=== PATIENT | female | born 1995 | race Two or more races ===

== ENCOUNTER 2018-08-23 18:01 | Emergency (ER) | payer MEDICAID ==
[~2018-08-23] VITALS: Ht 149.9 cm; Wt 85.4 kg
[~2018-08-23 18:01] MED LIST: HYDR-3240 PO; ONDA4TAB7 PO
[2018-08-23 18:10] VITALS: BP 111/77
[2018-08-23] MEDS ORDERED: LEVO75TA5 PO (18:51)
[2018-08-23 19:01] LABS: BASOPHILS # (AUTO) 0.02 x10^3/uL (0-0.1); BASOPHILS % (AUTO) 0 % (0-1); EOSINOPHILS # (AUTO) 0.13 x10^3/uL (0-0.4); EOSINOPHILS % (AUTO) 2 % (1-7); LYMPHOCYTES # (AUTO) 1.79 x10^3/uL (1-3.4); LYMPHOCYTES % (AUTO) 31 % (22-44); MD NO; MEAN CORPUSCULAR HEMOGLOBIN 28.7 pg (27.0-34.8); MEAN CORPUSCULAR HGB CONC 33.3 g/dL (32.4-35.8); MEAN CORPUSCULAR VOLUME 86.1 fL (80-100); MEAN PLATELET VOLUME 8.2 fL (7.4-10.4); MONOCYTES # (AUTO) 0.61 x10^3/uL (0.2-0.8); MONOCYTES % (AUTO) 10 % (2-9); NEUTROPHILS # (AUTO) 3.31 x10^3/uL (1.8-6.8); NEUTROPHILS % (AUTO) 57 % (42-75); PLATELET COUNT 362 x10^3/uL (130-400); RED BLOOD COUNT 5.61 x10^6/uL (3.82-5.3); RED CELL DISTRIBUTION WIDTH 13.3 % (9.6-15.2)
[2018-08-23 19:05] LABS: ALBUMIN 3.7 g/dL (3.4-5.0); ANION GAP 8 mmol/L (5-15); CALCIUM 8.9 mg/dL (8.5-10.1); CHLORIDE 109 mmol/L (98-107)
[2018-08-23 19:13] LABS: ALANINE AMINOTRANSFERASE 35 U/L (12-78); ALKALINE PHOSPHATASE 173 U/L (45-117); BILIRUBIN,TOTAL 0.3 mg/dL (0.2-1.0); CREATININE 0.72 mg/dL (0.55-1.02); TOTAL PROTEIN 7.7 g/dL (6.4-8.2)
[2018-08-23 19:17] LABS: HCG UR SG 1.035 (1.003-1.030)
[2018-08-23 19:19] LABS: CULTURE INDICATED? YES; MICROSCOPIC INDICATED
[2018-08-23] MEDS ORDERED: ONDANSETRON ODT 4 MG PO ONE (19:30)
== END 2018-08-23 19:54 | disposition home or self-care (01) ==
LOC: ED 19:34
DX: A09 Infectious gastroenteritis and colitis, unspecified (principal); R19.7 Diarrhea, unspecified
CPT/HCPCS: 36415; 80053; 81001; 81025; 83690; 85025; 86677; 87086; 99284

== ENCOUNTER 2019-03-17 22:41 | Emergency (ER) | payer MEDICAID ==
[~2019-03-17] VITALS: Ht 149.9 cm; Wt 90.5 kg
[~2019-03-17 22:41] MED LIST changes: +LEVO75TA5 PO
[2019-03-17 22:45] VITALS: BP 126/86
[2019-03-17] MEDS ORDERED: DIPHENHYDRAMINE 25 MG CAPSULE ONE (23:15)
[2019-03-17] MEDS ORDERED: DIPHENHYDRAMINE 25 MG CAPSULE PO ONE (23:30)
== END 2019-03-17 23:38 | disposition home or self-care (01) ==
LOC: ED 23:23
DX: S40.862A Insect bite (nonvenomous) of left upper arm, initial encounter (principal); S40.861A Insect bite (nonvenomous) of right upper arm, initial encounter; L03.114 Cellulitis of left upper limb; L03.113 Cellulitis of right upper limb; W57.XXXA Bitten or stung by nonvenomous insect and other nonvenomous arthropods, initial encounter; Y93.89 Activity, other specified; Y92.89 Other specified places as the place of occurrence of the external cause; Y99.8 Other external cause status
CPT/HCPCS: 99283; Q0163

== ENCOUNTER 2019-05-17 22:54 | Emergency (ER) | payer MEDICAID ==
[~2019-05-17] VITALS: Ht 149.9 cm; Wt 88.9 kg
[2019-05-17 22:59] VITALS: BP 124/72
== END 2019-05-17 23:51 | disposition home or self-care (01) ==
LOC: ED 23:40
DX: J02.0 Streptococcal pharyngitis (principal); R09.81 Nasal congestion
CPT/HCPCS: 87081; 87880; 99283

== ENCOUNTER 2019-05-18 12:59 | Emergency (ER) | payer MEDICAID ==
[~2019-05-18] VITALS: Ht 149.9 cm; Wt 86.0 kg
[2019-05-18 15:00] VITALS: BP 106/64
== END 2019-05-18 16:50 | disposition home or self-care (01) ==
LOC: ED 16:10
DX: R20.2 Paresthesia of skin (principal); J02.0 Streptococcal pharyngitis
CPT/HCPCS: 36415; 80053; 81003; 83605; 85025; 99283